=== PATIENT | male | born 1995 | race African-American/Black ===

== ENCOUNTER 2017-04-04 17:54 | Emergency (ER) | payer MEDICAID ==
[2017-04-04 18:02] VITALS: BP 111/80; PULSE 66; RESP 16; TEMP 97.9; O2SAT 97
[2017-04-04] MEDS ORDERED: IBUPROFEN 600 MG TAB PO ONE (18:08)
--- NOTE | 2017-04-04 18:08 | EDPHY ---
H & P Stated Complaint: L UPPER TOOTHACHE TOOK 4000 MG TYLENOL SINCE YESTERDAY AT 6PM Time Seen by Provider: 04/04/17 18:02 HPI/ROS: Chief complaint: Toothache History of present illness: This is a 21-year-old male who presents to the emergency department for toothache. He reports the onset of symptoms yesterday. He has developed pain in the left, upper aspect of his mouth. Is persistent. Denies precipitating factors. Denies associated signs or symptoms including no swelling over the region around the tooth, swelling the face or neck, no difficulty opening closing the mouth, no difficulty swallowing, no difficulty breathing. He has been taking extra-strength Tylenol 1000 mg every 6 hr for the last 4 hr. No other medication used. - Personal History Current Tetanus/Diphtheria Vaccine: No - Medical/Surgical History Hx Asthma: No Hx Chronic Respiratory Disease: No Hx Diabetes: No Hx Cardiac Disease: No Hx Renal Disease: No Hx Cirrhosis: No Hx Alcoholism: No Hx HIV/AIDS: No Hx Splenectomy or Spleen Trauma: No Other PMH: PMH: - Social History Smoking Status: Current every day smoker - Physical Exam Exam: General: Alert, nontoxic Eyes: PERRLA ENT: Patient has pain in the left upper 1st and 2nd molars. No surrounding edema. No hoarseness, no drooling, no trismus, no stridor Skin: No erythema or edema of the face or neck Constitutional: Initial Vital Signs Temperature (C) 36.6 C 04/04/17 17:59 Heart Rate 66 04/04/17 17:59 Respiratory Rate 16 04/04/17 17:59 Blood Pressure 111/80 04/04/17 17:59 O2 Sat (%) 97 04/04/17 17:59 O2 Delivery Mode Room Air Allergies/Adverse Reactions: shellfish derived Allergy (Verified 04/04/17 17:58) Home Medications: Medication Instructions Recorded Amoxicillin Trihydrate [Amoxil] 500 mg PO TID 7 Days cap 04/04/17 Tylenol ES 500 mg (*) 04/04/17 Medical Decision Making ED Course/Re-evaluation: Patient seen under the supervision of my secondary supervising physician Dr. Arash Dodge. Patient presents for toothache. He is nontoxic. I will start him on antibiotics. Pain management discussed including alternating Tylenol and ibuprofen and the use of topical pain medicine such as clove oil. He is given referral information to dentist. Return precautions given. Differential Diagnosis: Included but not limited to dental bakari, periodontal abscess, necrotizing gingivitis, - Data Points Medications Given: Discontinued Medications Ibuprofen (Motrin) 800 mg PO EDNOW ONE Stop: 04/04/17 18:09 Last Admin: 04/04/17 18:19 Dose: Not Given Ibuprofen (Motrin) 800 mg PO EDNOW ONE Stop: 04/04/17 18:17 Last Admin: 04/04/17 18:17 Dose: 800 mg Departure - Departure Disposition: Home, Routine, Self-Care Clinical Impression: Toothache Condition: Good Instructions: Toothache (ED) Additional Instructions: Follow-up with a dentist for continued evaluation and care Use 800 mg of ibuprofen every 8 hr for pain In addition use 1000 mg of Tylenol every 8 hr for pain You can buy topical clove oil at the pharmacy and apply to the area that hurts Take antibiotics as prescribed If symptoms worsen or new symptoms develop return to the emergency room for recheck Referrals: [facility] [Outside] - As per Instructions [facility] [Outside] - As per Instructions [facility] [Outside] - As per Instructions [facility] [Outside] - As per Instructions [facility] [Outside] - As per Instructions Prescriptions: Amoxicillin Trihydrate [Amoxil] 500 mg PO TID 7 Days cap
[2017-04-04] MEDS ORDERED: IBUPROFEN 800 MG TAB PO ONE ×2 (18:14→18:16)
== END 2017-04-04 18:20 | disposition home or self-care (01) ==
DX: K08.89 Other specified disorders of teeth and supporting structures (principal); F17.200 Nicotine dependence, unspecified, uncomplicated

== ENCOUNTER 2017-06-13 20:10 | Emergency (ER) | payer MEDICAID ==
--- NOTE | 2017-06-13 20:02 | EDPHY ---
Medical Decision Making ED Course/Re-evaluation: CHIEF COMPLAINT: HISTORY OF PRESENT ILLNESS: must have 4 elements: Location, Quality, Severity , Duration, Timing, Context, Modifying Factors, Associated Signs and Symptoms REVIEW OF SYSTEMS: A 10 point review of systems was performed and is negative with the exception of the elements mentioned in the history of present illness. PHYSICAL EXAM: HR, BP, O2 Sat, RR. Temp noted General Appearance: Alert, well hydrated, appropriate, and non-toxic appearing. Head: Atraumatic without scalp tenderness or obvious injury Eyes: Pupils equal, round, reactive to light and accommodation, EOMI, no trauma , no injection. Ears: Clear bilaterally, no perforation, normal landmarks Nose: Atraumatic, no rhinorrhea, clear. Throat: There is no erythema or exudates, no lesions, normal tonsils, mucus membranes moist. Neck: Supple, 2+ carotid upstroke, nontender, no lymphadenopathy. Respiratory: No retractions, no distress, no wheezes, and no accessory muscle use. Lungs are clear to auscultation bilaterally. Cardiovascular: Regular rate and rhythm, no murmurs, rubs, or gallops. Bilateral carotid, radial, dorsalis pedis, and posterior tibial pulses intact. Good capillary refill all extremities. Gastrointestinal: Abdomen is soft, nontender, non-distended, no masses, no rebound, no guarding, no peritoneal signs. Musculoskeletal: Normal active ROM of all extremities, atraumatic. Neurological: Alert, appropriate, and interactive. The patient has normal DTRs and non-focal cranial nerves, motor, sensory, and cerebellar exam. Skin: No rashes, good turgor, no nodules on palpation. Past medical history: Past surgical history: Family history: Social history: DIAGNOSTICS/PROCEDURES/CRITICAL CARE TIME: DIFFERENTIAL DIAGNOSIS: MEDICAL DECISION MAKING:
[2017-06-13] MEDS ORDERED: SKIN ADHESIVE (DERMABOND) 1 EACH TP ONE ×2 (20:13→20:15)
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
[2017-06-13 20:16] VITALS: BP 91/63
== END 2017-06-13 20:25 | disposition home or self-care (01) ==
LOC: EDUNIT#
PROC: 0HQ1XZZ Repair Face Skin, External Approach (ICD-10-PCS; principal; 2017-06-13)
DX: S01.81XA Laceration without foreign body of other part of head, initial encounter (principal); F17.200 Nicotine dependence, unspecified, uncomplicated; Y09 Assault by unspecified means; Y99.8 Other external cause status; Y93.89 Activity, other specified

== ENCOUNTER 2017-11-18 16:19 | Emergency (ER) | payer MEDICAID ==
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
[2017-11-18] MEDS ORDERED: LET GEL TOPICAL 1 EA SYR TP ONE (16:31)
[2017-11-18] MEDS ORDERED: ONDANSETRON DISINTEGRATING 4 MG TAB PO ONE (16:31)
[2017-11-18 17:36] VITALS: BP 125/80
== END 2017-11-18 17:35 | disposition home or self-care (01) ==
LOC: EDUNIT# → EDBD
PROC: 0HQ1XZZ Repair Face Skin, External Approach (ICD-10-PCS; principal; 2017-11-18)
DX: S01.81XA Laceration without foreign body of other part of head, initial encounter (principal); S63.501A Unspecified sprain of right wrist, initial encounter; Y92.480 Sidewalk as the place of occurrence of the external cause; V00.131A Fall from skateboard, initial encounter; F17.200 Nicotine dependence, unspecified, uncomplicated